=== PATIENT | male | born 1990 | race Two or more races ===

== ENCOUNTER 2018-11-01 10:34 | Emergency (ER) | payer SELFPAY ==
[~2018-11-01] VITALS: Ht 188 cm; Wt 104.3 kg
[2018-11-01 10:42] VITALS: BP 108/72
[2018-11-01] MEDS ORDERED: DEXAMETHASONE SOD PHOSPHATE 10 MG/ML VIAL ONE (10:56)
[2018-11-01] MEDS: DEXAMETHASONE SOD PHOSPHATE 10 MG/ML VIAL IM ONE (10:59)
--- NOTE | 2018-11-01 11:07 | NUR ---
Patient discharged to home in stable condition. Written and verbal after care instructions given. Patient verbalizes understanding of instruction.
== END 2018-11-01 11:05 | disposition home or self-care (01) ==
LOC: ER 10:34
DX: J02.9 Acute pharyngitis, unspecified (principal)
CPT/HCPCS: 96372; 99283; J1100